=== PATIENT | male | born 1940 | race Caucasian/White ===

== ENCOUNTER → 2019-01-01 | Outpatient (CLI) | payer MEDICARE, OTHER ==
[2019-01-01 10:32] LABS: ABSOLUTE EOSINOPHILS 0.1 thou/uL (0.0-0.7); ABSOLUTE MONOCYTES 0.6 thou/uL (0.0-1.2); ABSOLUTE NEUTROPHILS 3.7 thou/uL (1.6-8.1); BASOPHILS 0.4 %; EOSINOPHILS 2.1 %; LYMPHOCYTES 18.1 %; MCH 21.3 pg (26.0-34.0); MCHC 28.9 g/dL (28.0-37.0); MCV 73.8 fL (80.0-100.0); MONOCYTES 11.5 %; MPV 6.5 fl. (7.2-11.1); NUCLEATED RBCS 0 /100WBC; PLATELET COUNT* 295 thou/uL (150-400); POLYS 67.9 %; RBC 2.58 mil/uL (4.20-5.00); WBC 5.4 thou/uL (4.0-11.0)
[2019-01-01 10:40] LABS: ALBUMIN 3.2 g/dL (3.4-5.0); CALCIUM 8.4 mg/dL (8.5-10.1); TOTAL BILIRUBIN 0.4 mg/dL (<0.1-1.0); TOTAL PROTEIN 6.5 g/dL (6.4-8.2)
[2019-01-01 11:09] LABS: HEMOGLOBIN 5.5 gm/dL (12.0-15.0)
[2019-01-01 12:24] LABS: LARGE PLATELETS RARE; PLATELET ESTIMATE ADEQUATE
[2019-01-01 12:25] LABS: HYPOCHROMASIA 3+; POLYCHROMASIA 1+
[2019-01-01 12:26] LABS: BURR CELLS Occasional
[2019-01-01 12:28] LABS: ANISOCYTOSIS 2+
== END ==
LOC: M.LAB 10:05 → EDSEX 10:05
PROVIDERS: Internal Medicine
DX: J98.4 Other disorders of lung (principal); R29.898 Other symptoms and signs involving the musculoskeletal system

== ENCOUNTER → 2019-01-19 | Outpatient (CLI) | payer MEDICARE, OTHER ==
[2019-01-19 17:30] LABS: ABSOLUTE BASOPHILS 0.1 thou/uL (0.0-0.2); ABSOLUTE EOSINOPHILS 0.2 thou/uL (0.0-0.7); ABSOLUTE MONOCYTES 0.8 thou/uL (0.0-1.2); ABSOLUTE NEUTROPHILS 5.3 thou/uL (1.6-8.1); BASOPHILS 0.8 %; EOSINOPHILS 2.4 %; HEMATOCRIT 37.1 % (42.0-52.0); HEMOGLOBIN 11.8 gm/dL (14.0-18.0); LYMPHOCYTES 13.4 %; MCH 25.9 pg (26.0-34.0); MCHC 31.7 g/dL (28.0-37.0); MCV 81.7 fL (80.0-100.0); MONOCYTES 10.5 %; MPV 7.2 fl. (7.2-11.1); NUCLEATED RBCS 0 /100WBC; PLATELET COUNT* 300 thou/uL (150-400); POLYS 72.9 %; RBC 4.54 mil/uL (4.50-6.00); RDW-CV 24.3 % (10.5-14.5); WBC 7.3 thou/uL (4.0-11.0)
== END ==
LOC: M.LAB 16:57
PROVIDERS: Internal Medicine
DX: K92.2 Gastrointestinal hemorrhage, unspecified (principal)